=== PATIENT | female | born 1990 | race Caucasian/White ===

== ENCOUNTER 2018-03-28 04:34 | Emergency (ER) | payer OTHER ==
--- NOTE | 2018-03-28 04:37 | EDPHY ---
H & P Source: Patient <Stepan Cintron - Last Filed: 03/28/18 07:09> <Jasson Cr - Last Filed: 03/28/18 13:29> Time Seen by Provider: 03/28/18 04:37 HPI/ROS: HPI CHIEF COMPLAINT: Abdominal pain, right lower quadrant HISTORY OF PRESENT ILLNESS: This is otherwise healthy 27-year-old female, denies any significant medical history or surgical history she presents emergency room with abdominal pain. She states this started around 10:00 a.m. Yesterday the pain has been rather persistent dull achy initially was throughout her entire abdomen and lower back. However now it is localized over the past few hours her right lower quadrant. Did not eat except for a pickle at 5:00 p.m. States she has had no appetite. She has had nausea but no vomiting. 1 loose bowel movement earlier in the morning yesterday. States she does not think she is . Denies chest pain shortness of breath denies fever. Pain is localized to right lower quadrant rather severe 04/28 currently. Did take 1 baby aspirin 81 mg prior this evening for pain control. Did not help. Past Medical History: Lumbar burst fracture. Past Surgical History: No significant surgical history Social History: Denies daily use of drugs alcohol tobacco. Family History: Noncontributory ROS REVIEW OF SYSTEMS: A comprehensive 10 point review of systems is otherwise negative aside from elements mentioned in the history of present illness. Exam Constitutional nontoxic appearing in no acute distress triage nursing summary reviewed, vital signs reviewed, awake/alert. Eyes normal conjunctivae and sclera, EOMI, PERRLA. HENT normal inspection, atraumatic, moist mucus membranes, no epistaxis, neck supple/ no meningismus, no raccoon eyes. Respiratory clear to auscultation bilaterally, normal breath sounds, no respiratory distress, no wheezing. Cardiovascular rate normal, regular rhythm, no murmur, no edema, distal pulses normal. Gastrointestinal mild tender palpation right lower quadrant, no rebound, no guarding, normal bowel sounds, no distension, no pulsatile mass. Genitourinary no CVA tenderness. Musculoskeletal no midline vertebral tenderness, full range of motion, no calf swelling, no tenderness of extremities, no meningismus, good pulses, neurovascularly intact. Skin pink, warm, & dry, no rash, skin atraumatic. Neurologic awake, alert and oriented x 3, AAOx3, moves all 4 extremities equally, motor intact, sensory intact, CN II-XII intact, normal cerebellar, normal vision, normal speech. Psychiatric normal mood/affect. Heme/Lymph/Immune no lymphadenopathy. Differential diagnosis includes but is not limited to and in no particular order : Bowel obstruction, appendicitis, gallbladder disease, diverticulitis, colitis , enteritis, perforated viscus, gastritis, GERD, esophagitis, urinary tract infection, pyelonephritis, kidney stones Medical Decision Making: Plan for this patient IV establishment blood draw, IV fluid bolus 1 L normal saline, IV Zofran 4 mg for nausea, IV Dilaudid 0.5 mg for pain control, check test, basic blood work, if not plan will be for CT scan abdomen pelvis with IV contrast rule out acute appendicitis. Re-evaluation: CT scan abdomen pelvis with IV contrast: This shows no evidence of acute appendicitis. Appendix is normal. However does show rather large right ovarian cyst 5 cm with free fluid in the pelvis. Most likely hemorrhagic ovarian cyst. Most likely cause of her right lower quadrant abdominal pain. [id number]: I did go re-evaluate this patient this time she still has some mild pain. But much improved. CT scan reviewed shows no evidence of appendicitis but does show right large ovarian cyst. Hemorrhagic. Given the ongoing pain plan will be for pelvic ultrasound rule out torsion. If there is no torsion patient can go home. I provided her prescriptions for ibuprofen, [place]. Follow up with OBGYN. Return precautions discussed with the patient she understands return if she has worsening abdominal pain fever vomiting. (Stepan Cintron) Constitutional: Initial Vital Signs Temperature (C) 36.6 C 03/28/18 04:36 Heart Rate 74 03/28/18 04:36 Respiratory Rate 16 03/28/18 04:36 Blood Pressure 119/62 03/28/18 04:36 O2 Sat (%) 95 03/28/18 04:36 O2 Delivery Mode Room Air Allergies/Adverse Reactions: No Known Allergies Allergy (Unverified 03/28/18 04:38) Home Medications: Medication Instructions Recorded Hydrocodone/APAP 5/325 [[place] 1 - 2 tab PO Q4H PRN #10 tab 03/28/18 5/325] Ibuprofen [Motrin (*)] 800 mg PO Q6-8PRN #10 tab 03/28/18 Medical Decision Making <Stepan Cintron - Last Filed: 03/28/18 07:09> - Diagnostics Imaging: Discussed imaging studies w/ obstetrician gynecologist Radiologist <Jasson Cr - Last Filed: 03/28/18 13:29> - Diagnostics Imaging Results: Imaging Impressions Abdomen CT 03/28/18 04:52 Impression: 1. Negative for findings to support a clinical diagnosis of acute appendicitis. There is probable visualization of a normal appendix. 2. Large low-attenuation originating in the right adnexa is probably an ovarian cyst; a lytic ultrasound could be considered for further assessment as clinically directed. 3. See above report for additional findings. The study was performed as an emergency on-call case and discussed by telephone with Dr. Cintron at 0635 hours. The final interpretation is concordant with the original communication. Pelvic/Renal Ultrasound 03/28/18 06:59 Impression: 1. Complex presumed hemorrhagic cyst right adnexa versus less likely endometrioma. Consider follow-up pelvic ultrasound in 2-3 months to confirm resolution. 2. Normal-appearing uterus and left ovary. 3. Mild amount of free fluid in the pelvis. These findings were discussed by telephone with Dr. Jasson Cr at 8:02 hour , 03/28/2018. ED Course/Re-evaluation: 8:10 a.m. we discussed the ultrasound results. The patient is reassured. She states that some of her pain is returning. Will try treating her with Toradol. Otherwise she is eager to go home. We discussed follow-up and indications for returning. (Jasson Cr) - Data Points Laboratory Results: Laboratory Results 03/28/18 04:50 03/28/18 04:50 03/28/18 03/28/18 03/28/18 05:10 04:50 04:50 WBC RBC Hgb Hct MCV MCH MCHC RDW Plt Count MPV Neut % (Auto) Lymph % (Auto) [place] % (Auto) Eos % (Auto) Baso % (Auto) Nucleat RBC Rel Count Absolute Neuts (auto) Absolute Lymphs (auto) Absolute Monos (auto) Absolute Eos (auto) Absolute Basos (auto) Absolute Nucleated RBC Immature Gran % Immature Gran # Sodium 136 mEq/L mEq/L (135-145) Potassium 4.0 mEq/L mEq/L (3.3-5.0) Chloride 106 mEq/L mEq/L (97-110) Carbon Dioxide 23 mEq/l mEq/l (22-31) Anion Gap 7 mEq/L L mEq/L (8-16) BUN 10 mg/dL mg/dL (7-23) Creatinine 0.8 mg/dL mg/dL (0.6-1.0) Estimated GFR > 60 Glucose 87 mg/dL mg/dL (70-100) Calcium 9.9 mg/dL mg/dL (8.5-10.4) Total Bilirubin 0.7 mg/dL mg/dL (0.1-1.4) Conjugated Bilirubin 0.2 mg/dL mg/dL (0.0-0.5) Unconjugated Bilirubin 0.5 mg/dL mg/dL (0.0-1.1) AST 23 IU/L IU/L (14-46) ALT 28 IU/L IU/L (9-52) Alkaline Phosphatase 47 IU/L IU/L (38-126) Total Protein 7.0 g/dL g/dL (6.3-8.2) Albumin 4.2 g/dL g/dL (3.5-5.0) Lipase 52 IU/L IU/L (23-300) Beta HCG, Qual NEGATIVE Urine Color PALE YELLOW Urine Appearance CLEAR Urine pH 6.0 (5.0-7.5) Ur Specific [place] 1.001 L (1.002-1.030) Urine Protein NEGATIVE (NEGATIVE) Urine Ketones NEGATIVE (NEGATIVE) Urine Blood NEGATIVE (NEGATIVE) Urine Nitrate NEGATIVE (NEGATIVE) Urine Bilirubin NEGATIVE (NEGATIVE) Urine Urobilinogen NEGATIVE EU EU (0.2-1.0) Ur Leukocyte Esterase NEGATIVE (NEGATIVE) Urine Glucose NEGATIVE (NEGATIVE) 03/28/18 04:50 WBC 9.04 10^3/uL 10^3/uL (3.80-9.50) RBC 4.37 10^6/uL 10^6/uL (4.18-5.33) Hgb 13.6 g/dL g/dL (12.6-16.3) Hct 39.4 % % (38.0-47.0) MCV 90.2 fL fL (81.5-99.8) MCH 31.1 pg pg (27.9-34.1) MCHC 34.5 g/dL g/dL (32.4-36.7) RDW 12.7 % % (11.5-15.2) Plt Count 273 10^3/uL 10^3/uL (150-400) MPV 9.5 fL fL (8.7-11.7) Neut % (Auto) 57.2 % % (39.3-74.2) Lymph % (Auto) 35.0 % % (15.0-45.0) [place] % (Auto) 6.2 % % (4.5-13.0) Eos % (Auto) 1.0 % % (0.6-7.6) Baso % (Auto) 0.4 % % (0.3-1.7) Nucleat RBC Rel Count 0.0 % % (0.0-0.2) Absolute Neuts (auto) 5.17 10^3/uL 10^3/uL (1.70-6.50) Absolute Lymphs (auto) 3.16 10^3/uL H 10^3/uL (1.00-3.00) Absolute Monos (auto) 0.56 10^3/uL 10^3/uL (0.30-0.80) Absolute Eos (auto) 0.09 10^3/uL 10^3/uL (0.03-0.40) Absolute Basos (auto) 0.04 10^3/uL 10^3/uL (0.02-0.10) Absolute Nucleated RBC 0.00 10^3/uL 10^3/uL (0-0.01) Immature Gran % 0.2 % % (0.0-1.1) Immature Gran # 0.02 10^3/uL 10^3/uL (0.00-0.10) Sodium Potassium Chloride Carbon Dioxide Anion Gap BUN Creatinine Estimated GFR Glucose Calcium Total Bilirubin Conjugated Bilirubin Unconjugated Bilirubin AST ALT Alkaline Phosphatase Total Protein Albumin Lipase Beta HCG, Qual Urine Color Urine Appearance Urine pH Ur Specific [place] Urine Protein Urine Ketones Urine Blood Urine Nitrate Urine Bilirubin Urine Urobilinogen Ur Leukocyte Esterase Urine Glucose Medications Given: Discontinued Medications Hydromorphone HCl (Dilaudid) 0.5 mg IVP EDNOW ONE Stop: 03/28/18 04:53 Last Admin: 03/28/18 05:04 Dose: 0.5 mg Sodium Chloride (Ns) 1,000 mls @ 0 mls/hr IV EDNOW ONE; Wide Open PRN Reason: Protocol Stop: 03/28/18 04:42 Last Admin: 03/28/18 05:03 Dose: 1,000 mls Sodium Chloride (Ns) 1,000 mls @ 0 mls/hr IV EDNOW ONE; Wide Open PRN Reason: Protocol Stop: 03/28/18 07:03 Last Admin: 03/28/18 07:06 Dose: 1,000 mls Ketorolac Tromethamine (Toradol) 30 mg IVP EDNOW ONE Stop: 03/28/18 08:13 Last Admin: 03/28/18 08:16 Dose: 30 mg Ondansetron HCl (Zofran) 4 mg IVP EDNOW ONE Stop: 03/28/18 04:53 Last Admin: 03/28/18 05:04 Dose: 4 mg Departure <Stepan Cintron - Last Filed: 03/28/18 07:09> <Jasson Cr - Last Filed: 03/28/18 13:29> - Departure Disposition: Home, Routine, Self-Care Clinical Impression: Abdominal pain Qualifiers: Abdominal location: right lower quadrant Qualified Code(s): R10.31 - Right lower quadrant pain Ovarian cyst Qualifiers: Laterality: right Qualified Code(s): N83.201 - Unspecified ovarian cyst, right side Condition: Good Instructions: Hydrocodone/Acetaminophen (By mouth), Ibuprofen (By mouth), Acute Abdominal Pain (ED), Ruptured Ovarian Cyst (ED) Additional Instructions: 1. Return emergency room if you have worsening abdominal pain fever or vomiting 2. Ibuprofen for mild pain. 3. [place] for severe pain 4. Follow up with your OBGYN. Referrals: NONE *PRIMARY CARE P,. [Primary Care Provider] - As per Instructions Jo-Ann Molina MD [Medical Doctor] - As per Instructions Prescriptions: Hydrocodone/APAP 5/325 [[place] 5/325] 1 - 2 tab PO Q4H PRN #10 tab PRN Reason: Pain, Moderate Ibuprofen [Motrin (*)] 800 mg PO Q6-8PRN #10 tab
[2018-03-28] MEDS ORDERED: NS 1,000 ML IV ONE ×2 (04:41→07:02)
[2018-03-28] MEDS ORDERED: ONDANSETRON 4 MG/2 ML VIAL IVP ONE (04:52)
[2018-03-28] MEDS ORDERED: HYDROmorphONE/DILAUDID 2 MG/ML INJ IVP ONE (04:52)
[2018-03-28 05:01] LABS: PLATELET COUNT 273 10^3/uL (150-400)
[2018-03-28] MEDS ORDERED: IOPAMIDOL (ISOVUE-300) 100 ML BTL ONE (05:32)
[2018-03-28] MEDS ORDERED: IBUPROFEN 600 MG TAB PO ONE (08:10)
[2018-03-28] MEDS ORDERED: KETOROLAC 30 MG/1 ML SDV IVP ONE (08:12)
[2018-03-28 08:39] VITALS: BP 118/75
== END 2018-03-28 08:39 | disposition home or self-care (01) ==
DX: N83.201 Unspecified ovarian cyst, right side (principal); E86.9 Volume depletion, unspecified
CPT/HCPCS: 96374; J1170; J1885; J2405; Q9967